=== PATIENT | male | born 1985 | race Caucasian/White ===

== ENCOUNTER 2017-03-29 08:31 | Emergency (ER) | payer MEDICAID ==
[~2017-03-29] VITALS: Ht 172.7 cm; Wt 63.6 kg
[2017-03-29 09:21] LABS: BASOPHILS % (AUTO) 0.4 % (0.0-2.0); EOSINOPHILS % (AUTO) 0.9 % (1.0-6.0); HEMATOCRIT 48.2 % (41-53); HEMOGLOBIN 16.8 g/dL (13.5-17.5); LYMPHOCYTES # (AUTO) 1.4 K/uL (1.0-4.8); LYMPHOCYTES % (AUTO) 20.1 % (22.0-44.0); MEAN CORPUSCULAR HEMOGLOBIN 33.9 pg (26.0-34.0); MEAN CORPUSCULAR HGB CONC 34.8 G/dL (31.0-37.0); MEAN CORPUSCULAR VOLUME 97 fL (80-100); MONOCYTES # (AUTO) 0.8 K/uL (0.1-1.0); MONOCYTES % (AUTO) 11.2 % (2.0-9.0); NEUTROPHILS # (AUTO) 4.8 K/uL (1.8-7.7); NEUTROPHILS % (AUTO) 67.4 % (40.0-70.0); PLATELET COUNT (AUTO) 203 K/uL (150-450); RED BLOOD CELL COUNT(AUTO) 4.95 MIL/uL (4.50-5.90); RED CELL DISTRIBUTION WIDTH 12.8 % (11.5-14.5); WHITE BLOOD COUNT (AUTO) 7.2 K/uL (4.5-11.0)
[2017-03-29 09:30] LABS: ANION GAP 7 mmol/L (8-16); CALCIUM, TOTAL 9.6 mg/dL (8.8-10.5); CARBON DIOXIDE 30 mmol/L (22-29); CHLORIDE 103 mmol/L (98-107); CREATININE 0.87 mg/dL (0.60-1.30); GLOMERULAR FILTR. RATE CALC > 60 mL/min (>60); POTASSIUM 4.5 mmol/L (3.5-5.1); SODIUM SERUM 140 mmol/L (136-145); UREA NITROGEN, BLOOD 8 mg/dL (7-18)
[2017-03-29 09:35] LABS: ALANINE AMINOTRANSFERASE 21 U/L (12-78); ASPARTATE AMINOTRANSFERASE 19 U/L (15-37); TOTAL PROTEIN, SERUM 7.3 g/dL (6.4-8.2)
[2017-03-29 11:00] VITALS: BP 133/71
== END 2017-03-29 11:08 | disposition home or self-care (01) ==
LOC: EMS 08:34
DX: K29.70 Gastritis, unspecified, without bleeding (principal); F12.90 Cannabis use, unspecified, uncomplicated; F17.210 Nicotine dependence, cigarettes, uncomplicated
CPT/HCPCS: 99284

== ENCOUNTER 2017-05-30 09:26 | Emergency (ER) | payer MEDICAID ==
[~2017-05-30] VITALS: Ht 172.7 cm; Wt 68.2 kg
[2017-05-30 10:42] VITALS: BP 159/82
[2017-05-30] MEDS ORDERED: BACITRACIN 0.9 GM PACKET OINTMENT TP ONE (11:00)
[2017-05-30] MEDS ORDERED: PERTUSS(ACELL),DIPH,TET VAC/PF 0.5 ML VIAL IM ONE (11:00)
== END 2017-05-30 11:24 | disposition home or self-care (01) ==
LOC: EMS 09:28
DX: S61.402A Unspecified open wound of left hand, initial encounter (principal); F12.90 Cannabis use, unspecified, uncomplicated; F17.210 Nicotine dependence, cigarettes, uncomplicated; W45.8XXA Other foreign body or object entering through skin, initial encounter; Y93.89 Activity, other specified; Y92.89 Other specified places as the place of occurrence of the external cause; Y99.8 Other external cause status
CPT/HCPCS: 90471; 90715; 99283

== ENCOUNTER 2017-08-08 11:52 | Emergency (ER) | payer MEDICAID ==
[~2017-08-08] VITALS: Ht 172.7 cm; Wt 65.9 kg
[2017-08-08] MEDS ORDERED: KETOROLAC TROMETHAMINE 60 MG/2 ML VIAL IM ONE (13:00)
[2017-08-08 13:30] VITALS: BP 112/67
== END 2017-08-08 13:41 | disposition home or self-care (01) ==
LOC: EMS 11:53
DX: S39.012A Strain of muscle, fascia and tendon of lower back, initial encounter (principal); F12.90 Cannabis use, unspecified, uncomplicated; F17.210 Nicotine dependence, cigarettes, uncomplicated; X58.XXXA Exposure to other specified factors, initial encounter; Y93.89 Activity, other specified; Y92.89 Other specified places as the place of occurrence of the external cause; Y99.8 Other external cause status
CPT/HCPCS: 96372; 99283; J1885

== ENCOUNTER 2018-10-13 13:32 | Emergency (ER) | payer MEDICAID ==
[~2018-10-13] VITALS: Ht 172.7 cm; Wt 65.9 kg
[2018-10-13] MEDS ORDERED: BACITRACIN 0.9 GM PACKET OINTMENT TP ONE (15:30)
[2018-10-13 17:27] VITALS: BP 119/64
== END 2018-10-13 17:40 | disposition home or self-care (01) ==
LOC: EMS 13:33
DX: S83.91XA Sprain of unspecified site of right knee, initial encounter (principal); S60.511A Abrasion of right hand, initial encounter; F17.210 Nicotine dependence, cigarettes, uncomplicated; F12.90 Cannabis use, unspecified, uncomplicated; V00.131A Fall from skateboard, initial encounter; Y93.89 Activity, other specified; Y92.89 Other specified places as the place of occurrence of the external cause; Y99.8 Other external cause status
CPT/HCPCS: 99406

== ENCOUNTER 2018-12-28 11:19 | Emergency (ER) | payer SELFPAY ==
[~2018-12-28] VITALS: Ht 175.3 cm; Wt 68.2 kg
[2018-12-28 12:55] VITALS: BP 116/72
[2018-12-28] MEDS ORDERED: METHOCARBAMOL 500 MG TABLET PO ONE (13:15)
[2018-12-28] MEDS ORDERED: KETOROLAC TROMETHAMINE 60 MG/2 ML VIAL IM ONE (13:15)
== END 2018-12-28 13:55 | disposition home or self-care (01) ==
LOC: EMS 11:22
DX: S39.012A Strain of muscle, fascia and tendon of lower back, initial encounter (principal); F17.210 Nicotine dependence, cigarettes, uncomplicated; F12.90 Cannabis use, unspecified, uncomplicated; W10.9XXA Fall (on) (from) unspecified stairs and steps, initial encounter; Y93.89 Activity, other specified; Y92.89 Other specified places as the place of occurrence of the external cause; Y99.8 Other external cause status
CPT/HCPCS: 96372; 99283; J1885

== ENCOUNTER 2019-07-07 11:15 | Emergency (ER) | payer SELFPAY ==
[~2019-07-07] VITALS: Ht 172.7 cm; Wt 65.9 kg
[2019-07-07] MEDS ORDERED: PAIN MED PO (11:27)
[2019-07-07 13:32] VITALS: BP 138/77
== END 2019-07-07 14:33 | disposition home or self-care (01) ==
LOC: EMS 11:17
DX: S09.90XA Unspecified injury of head, initial encounter (principal); F17.210 Nicotine dependence, cigarettes, uncomplicated; F12.90 Cannabis use, unspecified, uncomplicated; Y04.0XXA Assault by unarmed brawl or fight, initial encounter; Y93.21 Activity, ice skating; Y92.830 Public park as the place of occurrence of the external cause; Y99.8 Other external cause status
CPT/HCPCS: 70450; 70486

== ENCOUNTER 2020-11-14 16:29 | Emergency (ER) | payer MEDICAID ==
[~2020-11-14] VITALS: Ht 172.7 cm; Wt 65.9 kg
[~2020-11-14 16:29] MED LIST: PAIN MED PO
[2020-11-14 16:33] VITALS: BP 148/80
== END 2020-11-14 17:47 | disposition home or self-care (01) ==
LOC: EMS 16:34
DX: H66.92 Otitis media, unspecified, left ear (principal); H60.92 Unspecified otitis externa, left ear; F17.210 Nicotine dependence, cigarettes, uncomplicated; F12.90 Cannabis use, unspecified, uncomplicated
CPT/HCPCS: 99283; Z7502

== ENCOUNTER 2020-11-16 12:58 | Emergency (ER) | payer MEDICAID ==
[~2020-11-16] VITALS: Ht 172.7 cm; Wt 63.6 kg
[2020-11-16] MEDS ORDERED: AMOX1TAB15 PO (13:06)
[2020-11-16] MEDS ORDERED: AMOX TR/POT CLAV 875 MG/125 MG TABLET PO ONE (14:30)
[2020-11-16] MEDS ORDERED: LIDOCAINE 1% 10 ML VIAL SQ ONE (14:30)
[2020-11-16 15:02] VITALS: BP 114/75
== END 2020-11-16 15:03 | disposition home or self-care (01) ==
LOC: EMS 13:07
DX: L02.413 Cutaneous abscess of right upper limb (principal); F17.210 Nicotine dependence, cigarettes, uncomplicated; F12.90 Cannabis use, unspecified, uncomplicated
CPT/HCPCS: 10060; 99283; J3490

== ENCOUNTER 2021-03-01 09:02 | Emergency (ER) | payer MEDICAID, OTHER ==
[~2021-03-01] VITALS: Ht 172.7 cm; Wt 65.9 kg
[~2021-03-01 09:02] MED LIST changes: +AMOX1TAB15 PO; -PAIN MED PO
[2021-03-01] MEDS ORDERED: CefTRIAXone 1 GM/DEXTROSE 50 ML IV ONE (09:30)
[2021-03-01] MEDS ORDERED: DOXYCYCLINE HYCLATE 100 MG TABLET PO ONE (09:30)
[2021-03-01] MEDS ORDERED: LIDOCAINE 1% 10 ML VIAL SQ ONE (09:30)
[2021-03-01 09:53] LABS: BASOPHILS % (AUTO) 0.2 % (0.0-2.0); EOSINOPHILS % (AUTO) 0.4 % (1.0-6.0); HEMATOCRIT 45.2 % (41-53); HEMOGLOBIN 15.6 g/dL (13.5-17.5); LYMPHOCYTES # (AUTO) 1.3 K/uL (1.0-4.8); LYMPHOCYTES % (AUTO) 15.5 % (22.0-44.0); MEAN CORPUSCULAR HEMOGLOBIN 33.4 pg (26.0-34.0); MEAN CORPUSCULAR HGB CONC 34.6 G/dL (31.0-37.0); MEAN CORPUSCULAR VOLUME 96 fL (80-100); MONOCYTES % (AUTO) 11.3 % (2.0-9.0); NEUTROPHILS # (AUTO) 6.3 K/uL (1.8-7.7); NEUTROPHILS % (AUTO) 72.6 % (40.0-70.0); PLATELET COUNT (AUTO) 220 K/uL (150-450); RED BLOOD CELL COUNT(AUTO) 4.68 MIL/uL (4.50-5.90); RED CELL DISTRIBUTION WIDTH 12.7 % (11.5-14.5)
[2021-03-01 10:02] LABS: ANION GAP 8 mmol/L (8-16); CALCIUM, TOTAL 8.8 mg/dL (8.8-10.5); CARBON DIOXIDE 24 mmol/L (22-29); CHLORIDE 105 mmol/L (98-107); CREATININE 0.86 mg/dL (0.60-1.30); GLOMERULAR FILTR. RATE CALC > 60 mL/min (>60); GLUCOSE,RANDOM 86 mg/dL (70-110); POTASSIUM 4.2 mmol/L (3.5-5.1); SODIUM SERUM 137 mmol/L (136-145); UREA NITROGEN, BLOOD 13 mg/dL (7-18)
[2021-03-01 10:08] LABS: ALANINE AMINOTRANSFERASE 20 U/L (12-78); ALBUMIN 3.5 g/dL (3.4-5.0); ALKALINE PHOSPHATASE 81 U/L (46-116); ASPARTATE AMINOTRANSFERASE 15 U/L (15-37); BILIRUBIN,TOTAL 0.7 mg/dL (0.1-1.0); TOTAL PROTEIN, SERUM 7.2 g/dL (6.4-8.2)
[2021-03-01 10:35] VITALS: BP 117/69
[2021-03-01] MEDS ORDERED: PERTUSS(ACELL),DIPH,TET VAC/PF 0.5 ML SYRINGE IM. ONE (11:15)
== END 2021-03-01 11:33 | disposition home or self-care (01) ==
LOC: EMS 09:05
DX: L02.416 Cutaneous abscess of left lower limb (principal); L03.116 Cellulitis of left lower limb; F17.210 Nicotine dependence, cigarettes, uncomplicated; F12.90 Cannabis use, unspecified, uncomplicated
CPT/HCPCS: 10160; 36415; 80053; 85025; 90471; 90715; 96365; 99284; J0696; J3490

== ENCOUNTER 2022-04-14 16:10 | Emergency (ER) | payer OTHER ==
[~2022-04-14] VITALS: Ht 165.1 cm; Wt 68.2 kg
[2022-04-14 16:53] VITALS: BP 152/90
[2022-04-14] MEDS ORDERED: IBUP-2070 PO (17:41)
[2022-04-14] MEDS ORDERED: DOXY-354 PO (17:41)
[2022-04-14] MEDS ORDERED: ACETAMINOPHEN/CODEINE 300-30 MG TABLET PO ONE (17:45)
== END 2022-04-14 17:58 | disposition home or self-care (01) ==
LOC: EMS 16:11
DX: L73.8 Other specified follicular disorders (principal); F17.210 Nicotine dependence, cigarettes, uncomplicated; F12.90 Cannabis use, unspecified, uncomplicated; F15.90 Other stimulant use, unspecified, uncomplicated; Z98.890 Other specified postprocedural states; Z90.49 Acquired absence of other specified parts of digestive tract
CPT/HCPCS: 99283

== ENCOUNTER 2022-06-07 10:37 | Emergency (ER) | payer OTHER ==
[~2022-06-07] VITALS: Ht 172.7 cm; Wt 65.9 kg
[~2022-06-07 10:37] MED LIST changes: -AMOX1TAB15 PO; +DOXY-354 PO; +IBUP-2070 PO
[2022-06-07 10:58] LABS: COVID AG,FIA SOURCE NASAL SWAB
[2022-06-07 12:30] VITALS: BP 147/79
== END 2022-06-07 12:38 | disposition home or self-care (01) ==
LOC: EMS 10:43
DX: J02.9 Acute pharyngitis, unspecified (principal); F17.210 Nicotine dependence, cigarettes, uncomplicated; F12.90 Cannabis use, unspecified, uncomplicated; F15.90 Other stimulant use, unspecified, uncomplicated; Z90.49 Acquired absence of other specified parts of digestive tract; Z20.822 Contact with and (suspected) exposure to COVID-19; Z98.890 Other specified postprocedural states
CPT/HCPCS: 87430; 99283

== ENCOUNTER 2022-08-29 15:29 | Emergency (ER) | payer OTHER ==
[~2022-08-29] VITALS: Ht 172.7 cm; Wt 65.9 kg
[~2022-08-29 15:29] MED LIST changes: +IBUP-1492 PO; -IBUP-2070 PO
[2022-08-29 15:40] VITALS: BP 143/70
[2022-08-29] MEDS ORDERED: DOXY-354 PO (16:57)
== END 2022-08-29 17:20 | disposition home or self-care (01) ==
LOC: EMS 15:32
DX: L03.116 Cellulitis of left lower limb (principal); F17.210 Nicotine dependence, cigarettes, uncomplicated; F12.90 Cannabis use, unspecified, uncomplicated; F15.90 Other stimulant use, unspecified, uncomplicated; Z90.49 Acquired absence of other specified parts of digestive tract
CPT/HCPCS: 99283; Z7502

== ENCOUNTER 2025-04-27 14:39 | Emergency (ER) | payer OTHER ==
[~2025-04-27] VITALS: Ht 172.7 cm; Wt 65.9 kg
[2025-04-27 14:43] VITALS: TEMP 97.9
[2025-04-27 15:15] LABS: PLATELET COUNT (AUTO) 224 K/uL (150-450); RED BLOOD CELL COUNT(AUTO) 4.86 MIL/uL (4.50-5.90); RED CELL DISTRIBUTION WIDTH 12.6 % (11.5-14.5); WHITE BLOOD COUNT (AUTO) 5.9 K/uL (4.5-11.0)
[2025-04-27 15:31] LABS: CALCIUM, TOTAL 8.8 mg/dL (8.8-10.5); CREATININE 0.84 mg/dL (0.60-1.30); GLOMERULAR FILTR. RATE CALC > 60 mL/min (>60); GLUCOSE,RANDOM 97 mg/dL (70-110); SODIUM SERUM 142 mmol/L (136-145); UREA NITROGEN, BLOOD 8 mg/dL (7-18)
[2025-04-27 15:33] LABS: TROPONIN I-HIGH SENSITIVITY 24 ng/L (<76)
[2025-04-27 15:36] LABS: ASPARTATE AMINOTRANSFERASE 61.0 U/L (15-37); TOTAL PROTEIN, SERUM 7.7 g/dL (6.4-8.2)
[2025-04-27 16:01] LABS: ALCOHOL, BLOOD (SERUM) 277.0 mg/dL (0-10)
[2025-04-27 16:03] LABS: PH,URINE DRUG SCREEN 6.0 (5.0-8.0)
[2025-04-27 16:18] LABS: AMPHET/METH SCREEN,URINE NEGATIVE (NEGATIVE); BARBITURATE SCREEN, URINE NEGATIVE (NEGATIVE); CANNABINOID SCREEN,URINE NEGATIVE (NEGATIVE); COCAINE SCREEN,URINE NEGATIVE (NEGATIVE); METHADONE SCREEN, URINE NEGATIVE (NEGATIVE)
[2025-04-27 16:20] LABS: ALCOHOL, URINE DRUG SCREEN POSITIVE (NEGATIVE)
[2025-04-27 18:00] VITALS: BP 125/71; PULSE 71; RESP 16; O2SAT 98
== END 2025-04-27 19:07 | disposition home or self-care (01) ==
LOC: EMS 14:48
DX: F10.129 Alcohol abuse with intoxication, unspecified (principal); R06.02 Shortness of breath; F12.90 Cannabis use, unspecified, uncomplicated; F15.90 Other stimulant use, unspecified, uncomplicated; F17.210 Nicotine dependence, cigarettes, uncomplicated; Z90.49 Acquired absence of other specified parts of digestive tract; Z98.890 Other specified postprocedural states; Z79.899 Other long term (current) drug therapy; Y90.8 Blood alcohol level of 240 mg/100 ml or more
CPT/HCPCS: 99285; 71045; 80048; 80076; 83735; 84484; 85025; 36415; 93005; 80307; G0480